=== PATIENT | female | born 1965 | race Caucasian/White ===

== ENCOUNTER 2017-09-20 18:14 | Emergency (ER) | payer SELFPAY ==
[2017-09-20 18:28] VITALS: BMI 36.2
--- NOTE | 2017-09-20 18:31 | PDOC ---
Rapid Medical Evaluation Time Seen by Provider: 09/20/17 18:25 Medical Evaluation: Allergies Allergy/AdvReac Type Severity Reaction Status Date / Time No Known Allergies Allergy Verified 09/20/17 18:25 09/20/17 18:25 I have performed a brief in-person evaluation of this patient. The patient presents with a chief complaint of: dizziness and chest pain since yesterday. Patient reports dizziness when she leans forward with discomfort in back of neck, left arm and left chest pain. Denies nausea, shortness of breath or diaphoresis. Pertinent physical exam findings: NAD lungs clear bilateral heart [id number] abdomen non tender no cervical mid spinal tenderness I have ordered the following: ekg, labs ordered The patient will proceed to the ED for further evaluation.
[2017-09-20 18:55] LABS: BASO % 0.8 % (0-2.0); EOS % 5.1 % (0-4.5); HEMATOCRIT 39.8 % (32.4-45.2); HEMOGLOBIN 13.3 GM/dL (10.7-15.3); LYMPH % 39.8 % (8-40); MCH 28.5 pg (25.7-33.7); MCHC 33.5 g/dl (32.0-36.0); MEAN CELL VOLUME 85.1 fl (80-96); MEAN PLT VOLUME 8.2 fl (7.5-11.1); MONO % 7.5 % (3.8-10.2); NEUT % 46.8 % (42.8-82.8); PLATELET COUNT 323 K/MM3 (134-434); RBC 4.67 M/mm3 (3.60-5.2); RDW 13.7 % (11.6-15.6); WHITE BLOOD COUNT 9.3 K/mm3 (4.0-10.0)
[2017-09-20 19:16] LABS: INR 0.93 (0.82-1.09); PROTHROMBIN TIME (PATIENT) 10.5 SEC (9.98-11.88)
[2017-09-20 19:19] LABS: ACTIVATED PTT 34.9 SECONDS (26.9-34.4)
[2017-09-20 19:37] LABS: ALBUMIN 3.8 g/dl (3.4-5.0); ANION GAP 8 (8-16); BILIRUBIN,TOTAL 0.3 mg/dL (0.2-1.0); BLOOD UREA NITROGEN 11 mg/dL (7-18); CALCIUM 9.1 mg/dL (8.5-10.1); CHLORIDE 102 mmol/L (98-107); CO2 30 mmol/L (21-32); CREATININE 0.5 mg/dL (0.55-1.02); GLUCOSE,RANDOM 85 mg/dL (74-106); POTASSIUM 4.4 mmol/L (3.5-5.1); SGOT/AST 17 U/L (15-37); SGPT/ALT 30 U/L (12-78); SODIUM 140 mmol/L (136-145); TOT PROT 8.1 g/dl (6.4-8.2)
[2017-09-20 19:39] LABS: ALK PHOS 134 U/L (45-117)
--- NOTE | 2017-09-20 19:40 | PDOC ---
History of Present Illness - General Chief Complaint: Lightheaded Stated Complaint: HEADACHE Time Seen by Provider: 09/20/17 18:25 - History of Present Illness Initial Comments: 09/20/17 20:19 52 yo F with h/o CVA who presents with lightheadedness. Patient reports acute onset of lightheadedness this AM worse with movement. Lightheadedness at rest x 2 days. Also endorses chest pressure/tightness x 2 days with radiation to left arm, and asx. numbness and tingling of distal upper extremities. No identifiable triggers. Posterior SINGH x 2 days, with absent neck stiffness, photophobia. Denies SOB, cough, N/V, F/C, vertigo/spinning sensation, LOC, weakness, jaw pain, neck pain, tinnitus, hearing loss. States that she had h[place]o left sided weakness and [place] Denies h/o CAD/ [place], stent placement, CABG, or abnromal EKG. Does not have PMD. Denies tobacco use. Past History - Past Medical History Allergies/Adverse Reactions: Allergies Allergy/AdvReac Type Severity Reaction Status Date / Time No Known Allergies Allergy Verified 09/20/17 18:25 Home Medications: Ambulatory Orders NK [No Known Home Medication] 09/20/17 COPD: No - Suicide/Smoking/Psychosocial Hx Smoking History: Never smoked Information on smoking cessation initiated: No Hx Alcohol Use: No Drug/Substance Use Hx: No Substance Use Type: None Review of Systems - Review of Systems Comments:: 09/20/17 19:39 GENERAL/CONSTITUTIONAL: No fever or chills. No weakness. HEAD, EYES, EARS, NOSE AND THROAT: No change in vision. No ear pain or discharge. No sore throat. CARDIOVASCULAR: + Chest pain. No shortness of breath RESPIRATORY: No cough, wheezing, or hemoptysis. GASTROINTESTINAL: No nausea, vomiting, diarrhea or constipation. GENITOURINARY: No dysuria, frequency, or change in urination. MUSCULOSKELETAL: No joint or muscle swelling or pain. No neck or back pain. SKIN: No rash NEUROLOGIC: + Headache, and Lightheadedness, change in strength/sensation.No vertigo, loss of consciousness, ENDOCRINE: No increased thirst. No abnormal weight change HEMATOLOGIC/LYMPHATIC: No anemia, easy bleeding, or history of blood clots. ALLERGIC/IMMUNOLOGIC: No hives or skin allergy. *Physical Exam - Vital Signs Last Vital Signs Temp Pulse Resp BP Pulse Ox 98.1 F 62 18 155/82 98 09/20/17 18:26 09/20/17 18:26 09/20/17 18:26 09/20/17 18:26 09/20/17 19:22 - Physical Exam Comments: 09/20/17 19:39 GENERAL: Awake, alert, and fully oriented, in no acute distress HEAD: No signs of trauma, normocephalic, atraumatic EYES: PERRLA, EOMI, sclera anicteric, conjunctiva clear ENT: Auricles normal inspection, hearing grossly normal, nares patent, oropharynx clear without exudates. Moist mucosa NECK: Normal ROM, supple, no lymphadenopathy, JVD, or masses LUNGS: No distress, speaks full sentences, clear to auscultation bilaterally HEART: Regular rate and rhythm, normal S1 and S2, no murmurs, rubs or gallops, peripheral pulses normal and equal bilaterally. EXTREMITIES : Normal inspection, Normal range of motion, no edema. No clubbing or cyanosis. NEUROLOGICAL: Cranial nerves II through XII grossly intact. Normal speech, normal gait, no focal sensorimotor deficits. Neg DONYA. Absent nystagmus. Normal HTS. Neg dsymetria on FTN. SKIN: Warm, Dry, normal turgor, no rashes or lesions noted ED Treatment Course - LABORATORY CBC & Chemistry Diagram: 09/20/17 18:48 09/20/17 18:48 - ADDITIONAL ORDERS Additional order review: Laboratory Results 09/20/17 09/20/17 18:48 18:48 PT with INR 10.50 INR 0.93 PTT (Actin FS) 34.9 H Sodium 140 Potassium 4.4 Chloride 102 Carbon Dioxide 30 Anion Gap 8 BUN 11 Creatinine 0.5 L Creat Clearance w eGFR > 60 Random Glucose 85 Calcium 9.1 Total Bilirubin 0.3 AST 17 ALT 30 Alkaline Phosphatase 134 H Creatine Kinase 124 Troponin I < 0.02 Total Protein 8.1 Albumin 3.8 09/20/17 18:48 RBC 4.67 MCV 85.1 MCHC 33.5 RDW 13.7 MPV 8.2 Neutrophils % 46.8 Lymphocytes % 39.8 Monocytes % 7.5 Eosinophils % 5.1 H Basophils % 0.8 - RADIOLOGY Radiology Studies Ordered: Category Date Time Status HEAD CT WITHOUT CONTRAST [CT] Stat CT Scan 09/20/17 20:14 Completed - Medications Given in the ED: ED Medications Discontinued Medications Generic Name Dose Route Start Last Admin Trade Name Agustín PRN Reason Stop Dose Admin Meclizine HCl 25 mg 09/20/17 20:18 09/20/17 20:36 Antivert - PO 09/20/17 20:19 25 mg ONCE ONE Administration Medical Decision Making - Medical Decision Making 09/20/17 19:46 52 yo F with h/o CVA who presents with acute onset of lightheadedness this AM worse with movement, wi/ lightheadedness at rest x 2 days. + Chest pressure/ tightness x 2 days with radiation to left arm, and asx. numbness and tingling of distal upper extremities. Posterior SINGH x 2 days. Denies SOB, cough, N/V, F/C , vertigo/spinning sensation, LOC, weakness, jaw pain, neck pain, tinnitus, hearing loss, abdominal pain, urinary complaints. Denies h/o CAD/[place], stent placement, CABG, or abnromal EKG. Does not have PMD. Denies tobacco use. Will consider CVA/TIA in setting of SINGH and lightheadedness, given multiple risk factors and self reported h/o CVA. Also consider other causes of presyncope ( cardiogenic vs. neurogenic. vs hypovolemic). ACS/[place] r/o. ED Course: CBC, CMP, Cardiac Pr EKG, CXR CT HEAD NON CON Meclizine 25 mg 09/20/17 20:55 EKG: NSR with absent YADI, STD, or YADI. Normal interval duration or axis. 09/20/17 21:01 CBC, CMP: Unremarkable CT HEAD NON CON: No acute intracranial pathology. 09/20/17 21:59 Sent Meclzine to pharm. Pt. lightheadedness improved. stable for d/c with return precautions. Advised to f/u with neurology. *DC/Admit/Observation/Transfer Diagnosis at time of Disposition: Light-headed - Discharge Dispostion Disposition: HOME Condition at time of disposition: Stable Admit: No - Referrals Referrals: Jarett Richardson MD [Staff Physician] - - Patient Instructions Printed Discharge Instructions: DI for Syncope in Adults (Fainting), DI for Atypical Chest Pain Additional Instructions: Please return to the emergency department with any new or worsening symptoms or concerns. Please follow up with your primary care physician within 72 hours. Please follow up with neurology within 1 week. Print Language: [place] - Post Discharge Activity - Attestations Physician Attestion: 09/20/17 19:40 I attest to the information provided in this note.
--- NOTE | 2017-09-20 19:57 | PDOC ---
Attending Attestation - Resident Resident Name: Maximino Moran - ED Attending Attestation I have performed the following: I have examined & evaluated the patient, The case was reviewed & discussed with the resident, I agree w/resident's findings & plan, Exceptions are as noted
[2017-09-20] MEDS ORDERED: MECLIZINE HCL 25 MG TABLET (FP) PO ONE (20:18)
[2017-09-20] MEDS ORDERED: MECLIZINE HCL 12.5 MG TABLET ONE (20:22)
[2017-09-20 22:32] VITALS: BP 135/80; PULSE 82; TEMP 98.3
--- NOTE | 2017-09-22 21:47 | EKG ---
Test Reason : Blood Pressure : / mmHG Vent. Rate : 060 BPM Atrial Rate : 060 BPM P-R Int : 172 ms QRS Dur : 070 ms QT Int : 420 ms P-R-T Axes : 040 042 037 degrees QTc Int : 420 ms NORMAL SINUS RHYTHM NORMAL ECG NO PREVIOUS ECGS AVAILABLE Confirmed by STEPHANIE ABURTO MD ([id number]) on 09/22/2017 9:46:57 PM Referred By: Confirmed By:STEPHANIE ABURTO MD
== END 2017-09-20 22:32 | disposition home or self-care (01) ==
LOC: JER 18:14
DX: R42 Dizziness and giddiness (principal); Z86.73 Personal history of transient ischemic attack (TIA), and cerebral infarction without residual deficits
CPT/HCPCS: 36415; 70450-TC; 80053; 82550; 84484; 85025; 85610; 85730; 93005; 93010; 99284-25